=== PATIENT | male | born 1960 | race Caucasian/White ===

== ENCOUNTER 2020-12-22 08:42 | Emergency (ER) | payer OTHER ==
[~2020-12-22 08:42] MED LIST: CLEOCIN300 MG PO; NORCO 5-325 TA1 EACH PO; PERCOCET 5-3251 EACH PO; ZESTRIL5 MG PO
[2020-12-22] MEDS ORDERED: MEDROL 4MG DOSEP4 MG PO (11:26)
[2020-12-22] MEDS ORDERED: ROBAXIN750 MG PO (11:26)
[2020-12-22] MEDS ORDERED: NAPROXEN500 MG PO (11:26)
== END 2020-12-22 11:51 | disposition home or self-care (01) ==
LOC: FER 08:42
DX: M54.5 Low back pain (principal); I10 Essential (primary) hypertension; Z79.899 Other long term (current) drug therapy; Z88.0 Allergy status to penicillin
CPT/HCPCS: 72110; J1885